=== PATIENT | female | born 1965 | race Native Hawaiian/Other Pacific Islander ===

== ENCOUNTER 2023-02-13 17:05 | Emergency (ER) | payer OTHER ==
[~2023-02-13] VITALS: Ht 162.6 cm; Wt 72.6 kg
[2023-02-13 18:09] LABS: PLATELET COUNT 310 K/uL (152-353)
[2023-02-13 18:15] LABS: POTASSIUM 3.9 mmol/L (3.6-5.2)
[2023-02-13 22:06] VITALS: TEMP 99.8
[2023-02-13 22:45] VITALS: BP 111/60
== END 2023-02-13 22:45 | disposition short-term general hospital (02) ==
LOC: ED 17:05
PROVIDERS: Family Medicine
PROC: 0D9670Z Drainage of Stomach with Drainage Device, Via Natural or Artificial Opening (ICD-10-PCS; principal; 2023-02-13)
DX: K85.90 Acute pancreatitis without necrosis or infection, unspecified (principal); K26.5 Chronic or unspecified duodenal ulcer with perforation; K52.89 Other specified noninfective gastroenteritis and colitis; A41.9 Sepsis, unspecified organism; S70.01XA Contusion of right hip, initial encounter; S70.11XA Contusion of right thigh, initial encounter; W22.8XXA Striking against or struck by other objects, initial encounter; Y93.89 Activity, other specified; Y92.814 Boat as the place of occurrence of the external cause
CPT/HCPCS: 43754; 80053; 81000; 82150; 83605; 83690; 85027; 87040; 87086; 87088; 96361; 96365; 96375; 96376; 99284; J1885; J2270; J2543; J2550; Q9963

== ENCOUNTER 2023-03-31 08:49 | Outpatient (CLI) | payer OTHER | END 2023-03-31 17:00 | disposition home or self-care (01) | LOC: US 08:49 | PROVIDERS: ATTEND Nurse Practitioner Family | DX: K43.2 Incisional hernia without obstruction or gangrene (principal) ==

== ENCOUNTER 2023-05-02 09:59 | Observation (INO) | payer OTHER ==
[~2023-05-02] VITALS: Ht 162.6 cm; Wt 61.7 kg
[2023-05-02 20:32] VITALS: BP 124/77; TEMP 98.6
[2023-05-02 20:43] LABS: PLATELET COUNT 269 K/uL (152-353)
[2023-05-02] MEDS ORDERED: MIRALAX17 GM/SCOO PO (20:51)
[2023-05-02] MEDS ORDERED: ALIGN4 MG PO (20:51)
[2023-05-02 20:55] LABS: POTASSIUM 4.1 mmol/L (3.6-5.2)
[2023-05-03] VITALS: BP 94/47; TEMP 98
[2023-05-03 03:26] VITALS: BP 124/77; TEMP 98.6; Ht 162.6 cm; Wt 61.7 kg
[2023-05-03 04:00] VITALS: BP 99/41; TEMP 98.2
[2023-05-03 08:00] VITALS: BP 105/48; TEMP 98.2
[2023-05-03 10:24] LABS: PLATELET COUNT 251 K/uL (152-353)
[2023-05-03 10:27] LABS: POTASSIUM 4.4 mmol/L (3.6-5.2)
[2023-05-03 11:59] VITALS: BP 123/42; TEMP 97.6
[2023-05-03 16:00] VITALS: BP 107/67; TEMP 98.8
== END 2023-05-03 17:15 | disposition home or self-care (01) ==
LOC: CT 09:59 → MED/SURG 19:01
PROVIDERS: ADMIT Family Medicine; ATTEND Family Medicine
DX: K29.80 Duodenitis without bleeding (principal); S30.1XXA Contusion of abdominal wall, initial encounter; K44.9 Diaphragmatic hernia without obstruction or gangrene; K76.9 Liver disease, unspecified; Z98.890 Other specified postprocedural states; Y92.89 Other specified places as the place of occurrence of the external cause
CPT/HCPCS: 36415; 80053; 81000; 82565; 84520; 85027; 87040; 96360; 96367; 99221; G0378; J2543; Q9963

== ENCOUNTER 2023-05-12 08:11 | Outpatient (CLI) | payer OTHER ==
[~2023-05-12 08:11] MED LIST: ALIGN4 MG PO; MIRALAX17 GM/SCOO PO
== END 2023-05-12 18:58 | disposition home or self-care (01) ==
LOC: MRI 08:11
PROVIDERS: ATTEND Family Medicine
DX: K76.9 Liver disease, unspecified (principal)
CPT/HCPCS: A9576